=== PATIENT | male | born 1965 | race Caucasian/White ===

== ENCOUNTER 2016-11-10 17:25 | Inpatient (IN) | payer SELFPAY ==
[~2016-11-10] VITALS: Ht 165.1 cm; Wt 94.3 kg
[2016-11-10] VITALS (7 sets, daily range): BP systolic 116–158; BP diastolic 62–82; PULSE 72–99; RESP 16–18; TEMP 97.5–97.9; O2SAT 95–97
[2016-11-10] MEDS ORDERED: SODIUM CHLORID 0.9% 500 ML INJ 500 ML IV ONE (17:45)
[2016-11-10] MEDS ORDERED: SODIUM CHLORIDE 0.9% FLUSH 10 ML FLUSH IVF PRN (17:45)
[2016-11-10] MEDS ORDERED: ASPIRIN 325 MG TAB PO ONE (17:45)
[2016-11-10] MEDS ORDERED: MORPHINE SULFATE 4 MG/ML INJ IV PUSH ONE (17:45)
[2016-11-10] MEDS: NITROGLYCERIN 0.4 MG SL 25 TABS/BTL SL SCH ×3 (17:50→17:57)
--- NOTE | 2016-11-10 17:50 | PD ---
HPI Chief Complaint: Chest Pain Time Seen by Provider: 17:36 Travel History International Travel<30 days: No Contact w/Intl Traveler<30days: No Traveled to known affect area: No History of Present Illness HPI 51-year-old male arrives to the ER with chest pain. It started yesterday at rest. Location retrosternal with a sharp quality. He ate some fruits and then the pain seemed to have disappeared. Today after working in his yard for some time and the pain returned and he came to the ER. He also describes some pain in the region of the right costal margin. He's had no nausea or vomiting. He reports hot sweats but he's had no fever or cough. He smokes about half pack cigarettes per day. He drinks a few beers per night however he used to drink a pint of liquor or more every night. He has no history of hypertension hyperlipidemia or diabetes. His mother had a history of early-onset coronary artery disease. PFS Past Medical History Gout: Yes Social History Alcohol Use: Yes (5-6 beers a day) Tobacco Use: Yes (0.5 PPD) Substance Use: No Allergies-Medications (Allergen,Severity, Reaction): Coded Allergies: Penicillin (Verified Allergy, Unknown, 11/10/16) Reported Meds & Prescriptions Reported Meds & Active Scripts Active No Active Prescriptions or Reported Medications Review of Systems Except as stated in HPI: all other systems reviewed are Neg General / Constitutional: No: Fever Physical Exam Narrative GENERAL: 51-year-old male well-nourished well-developed no acute distress SKIN: Warm and dry. HEAD: Atraumatic. Normocephalic. EYES: Pupils equal and round. No scleral icterus. No injection or drainage. ENT: No nasal bleeding or discharge. Mucous membranes pink and moist. NECK: Trachea midline. No JVD. CARDIOVASCULAR: Regular rate and rhythm. RESPIRATORY: No accessory muscle use. Clear to auscultation. Breath sounds equal bilaterally. GASTROINTESTINAL: Abdomen soft, non-tender, nondistended. Hepatic and splenic margins not palpable. MUSCULOSKELETAL: Extremities without clubbing, cyanosis, or edema. No obvious deformities. NEUROLOGICAL: Awake and alert. No obvious cranial nerve deficits. Motor grossly within normal limits. Five out of 5 muscle strength in the arms and legs. Normal speech. PSYCHIATRIC: Appropriate mood and affect; insight and judgment normal. Data Data Last Documented VS Vital Signs Date Time Temp Pulse Resp B/P Pulse Ox O2 Delivery O2 Flow Rate FiO2 11/10/16 18:06 89 18 116/78 96 Nasal Cannula 3 11/10/16 17:27 97.9 Vital signs reviewed Orders Electrocardiogram (11/10/16 17:45) Ckmb (Isoenzyme) Profile (11/10/16 17:45) Complete Blood Count With Diff (11/10/16:45) Magnesium (Mg) (11/10/16 17:45) Prothrombin Time / Inr (Pt) (11/10/16 17:45) Act Partial Throm Time (Ptt) (11/10/16 17:45) Troponin I (11/10/16:45) Chest, Single Ap (11/10/16:45) Ecg Monitoring (11/10/16 17:45) Iv Access Insert/Monitor (11/10/16 17:45) Oximetry (11/10/16 17:45) Oxygen Administration (11/10/16 17:45) Aspirin (Aspirin) (11/10/16 17:45) Morphine Inj (Morphine Inj) (11/10/16 17:45) Sodium Chloride 0.9% Flush (Ns Flush) (11/10/16 17:45) Nitroglycerin Sl (Nitrostat Sl) (11/10/16 17:45) Sodium Chlorid 0.9% 500 Ml Inj (Ns 500 M (11/10/16 17:45) Comprehensive Metabolic Panel (11/10/16 17:45) Lipase (11/10/16 17:45) Drug Screen, Random Urine (11/10/16 18:03) Alcohol (Ethanol) (11/10/16 17:50) Sodium Chlor 0.9% 1000 Ml Inj (Ns 1000 M (11/10/16 19:00) Labs Laboratory Tests Test 11/10/16 17:50 White Blood Count 12.4 TH/MM3 Red Blood Count 4.16 MIL/MM3 Hemoglobin 14.8 GM/DL Hematocrit 41.4 % Mean Corpuscular Volume 99.6 FL Mean Corpuscular Hemoglobin 35.7 PG Mean Corpuscular Hemoglobin 35.9 % Concent Red Cell Distribution Width 16.6 % Platelet Count 285 TH/MM3 Mean Platelet Volume 10.8 FL Neutrophils (%) (Auto) 75.5 % Lymphocytes (%) (Auto) 13.9 % Monocytes (%) (Auto) 7.7 % Eosinophils (%) (Auto) 2.1 % Basophils (%) (Auto) 0.8 % Neutrophils # (Auto) 9.4 TH/MM3 Lymphocytes # (Auto) 1.7 TH/MM3 Monocytes # (Auto) 1.0 TH/MM3 Eosinophils # (Auto) 0.3 TH/MM3 Basophils # (Auto) 0.1 TH/MM3 CBC Comment DIFF FINAL Differential Comment Prothrombin Time 11.9 SEC Prothromb Time International 1.1 RATIO Ratio Activated Partial 28.7 SEC Thromboplast Time MDM Medical Decision Making Medical Screen Exam Complete: Yes Emergency Medical Condition: Yes Medical Record Reviewed: Yes Differential Diagnosis NSTEMI, unstable angina, coronary vasospasm, PE, PTX, aortic dissection, pericarditis, myocarditis, endocarditis, PNA, esophageal disease, aneurysm, musculoskeletal etiologies, anxiety, cocaine/sympathomimetic abuse Narrative Course EKG reveals a sinus rhythm with a rate of [address] depressions noted At 6:05 PM the patient became unresponsive for approximately 30 seconds. He became profusely diaphoretic. Pallor was observed as well. RN observed the heart rate decreased into the 30s prior to the onset of unresponsiveness. Evidently his eyes rolled in the back of his head as well. Patient responded to a sternal rub. He woke up and was somewhat postictal for 10 seconds or so. He has no history of epilepsy or seizure. He has never had morphine before. Etiology of the event is unclear however consideration is given to either seizure-like episode or potentially a bradycardic response to morphine. He also had nitroglycerin immediately beforehand. It has since been observed at urinary incontinence accompanied the unresponsive episode. This coupled with the history of alcoholism raises concern for alcohol withdrawal seizure potentially. Upon additional questioning the patient notes that he has been drinking nearly a liter of alcohol a day up until 3 days ago and then today he had one or 2 drinks. Diagnosis Primary Impression: Chest pain Qualified Code: R07.9 - Chest pain, unspecified type Admitting Information Admitting Physician Requests: Observation Scripts No Active Prescriptions or Reported Meds Josué Biswas MD Nov 10, 2016 17:50 Josué Biswas MD Nov 10, 2016 17:50
--- NOTE | 2016-11-10 18:01 | RADRPT ---
EXAM DATE/TIME: 11/10/2016 17:43 [facility] COMPARISON: No previous studies available for comparison. INDICATIONS : Center chest pain. MEDICAL HISTORY : None. SURGICAL HISTORY : None. ENCOUNTER: Initial ACUITY: 1 day PAIN SCORE: 2/10 LOCATION: Bilateral chest. FINDINGS: A single view of the chest demonstrates the lungs to be symmetrically aerated without evidence of mas s, infiltrate or effusion. The cardiomediastinal contours are unremarkable. Healed lateral left rib fractures.. CONCLUSION: No acute disease Shahriar Mabry MD on November 10, 2016 at 17:59 Board Certified Radiologist. This report was verified electronically.
[2016-11-10 18:21] LABS: AUTOMATED NEUTROPHIL # 9.4 TH/MM3 (1.8-7.7); BASOPHIL # 0.1 TH/MM3 (0-0.2); BASOPHIL % 0.8 % (0.0-2.0); EOSINOPHIL # 0.3 TH/MM3 (0-0.4); EOSINOPHIL % 2.1 % (0.0-4.0); HEMATOCRIT 41.4 % (39.0-51.0); HEMO FLAGS DIFF FINAL; LYMPH % 13.9 % (9.0-44.0); LYMPHOCYTE # 1.7 TH/MM3 (1.0-4.8); MEAN CELL VOLUME 99.6 FL (80.0-100.0); MEAN CORPUSCULAR HEMOGLOBIN 35.7 PG (27.0-34.0); MEAN CORPUSCULAR HGB CONC 35.9 % (32.0-36.0); MONO % 7.7 % (0.0-8.0); NEUT % 75.5 % (16.0-70.0); PLATELET COUNT 285 TH/MM3 (150-450); RED BLOOD COUNT 4.16 MIL/MM3 (4.50-5.90); RED CELL DISTRIBUTION WIDTH 16.6 % (11.6-17.2); WHITE BLOOD COUNT 12.4 TH/MM3 (4.0-11.0)
[2016-11-10 18:30] LABS: APTT (PATIENT) 28.7 SEC (24.3-30.1); INTERNATIONAL NORMALIZED RATIO 1.1 RATIO; PROTHROMBIN TIME - PATIENT 11.9 SEC (9.8-11.6)
[2016-11-10] MEDS ORDERED: SODIUM CHLOR 0.9% 1000 ML INJ 1,000 ML IV ONE (19:00)
[2016-11-10 20:09] LABS: ALT (GPT) 104 U/L (12-78)
[2016-11-10 20:18] LABS: ALKALINE PHOSPHATASE 140 U/L (45-117); ANION GAP 10 MEQ/L (5-15); AST (GOT) 143 U/L (15-37); BICARBONATE 28.1 MEQ/L (21.0-32.0); BLOOD UREA NITROGEN 19 MG/DL (7-18); CHLORIDE 95 MEQ/L (98-107); CREATINE KINASE 72 U/L (39-308); GLOMERULAR FILTRATION RATE 41 ML/MIN (>89); MAGNESIUM 2.1 MG/DL (1.5-2.5); POTASSIUM 3.7 MEQ/L (3.5-5.1); SODIUM (NA) 133 MEQ/L (136-145)
--- NOTE | 2016-11-10 20:35 | PD ---
Physical Exam Narrative Patient signed out to me by Dr. Biswas. Please see his documentation for complete details. Briefly, patient has been having episodes of substernal chest pain. He says the first one was yesterday and then it occurred again today while he was mowing the lawn. Patient received nitroglycerin, and then had an episode of unresponsiveness with incontinence that was believed to possibly be a seizure. Patient has history of chronic alcoholism, there is concern for withdrawal. Currently, patient is awake and alert and oriented. Heart is regular rate and rhythm, lungs are clear to auscultation. Data Data Last Documented VS Vital Signs Date Time Temp Pulse Resp B/P Pulse Ox O2 Delivery O2 Flow Rate FiO2 11/10/16 19:14 80 17 120/62 96 Nasal Cannula 2 11/10/16 17:27 97.9 Orders Electrocardiogram (11/10/16 17:45) Ckmb (Isoenzyme) Profile (11/10/16 17:45) Complete Blood Count With Diff (11/10/16 17:45) Magnesium (Mg) (11/10/16 17:45) Prothrombin Time / Inr (Pt) (11/10/16 17:45) Act Partial Throm Time (Ptt) (11/10/16 17:45) Troponin I (11/10/16 17:45) Chest, Single Ap (11/10/16 17:45) Ecg Monitoring (11/10/16 17:45) Iv Access Insert/Monitor (11/10/16 17:45) Oximetry (11/10/16 17:45) Oxygen Administration (11/10/16 17:45) Aspirin (Aspirin) (11/10/16 17:45) Morphine Inj (Morphine Inj) (11/10/16 17:45) Sodium Chloride 0.9% Flush (Ns Flush) (11/10/16 17:45) Nitroglycerin Sl (Nitrostat Sl) (11/10/16 17:45) Sodium Chlorid 0.9% 500 Ml Inj (Ns 500 M (11/10/16 17:45) Comprehensive Metabolic Panel (11/10/16 17:45) Lipase (11/10/16 17:45) Drug Screen, Random Urine (11/10/16 18:03) Alcohol (Ethanol) (11/10/16 17:50) Sodium Chlor 0.9% 1000 Ml Inj (Ns 1000 M (11/10/16 19:00) Admit Order (Ed Use Only) (11/10/16 ) Lorazepam Inj (Ativan Inj) (11/10/16 21:00) Labs Laboratory Tests Test 11/10/16 11/10/16 17:50 19:25 White Blood Count 12.4 TH/MM3 Red Blood Count 4.16 MIL/MM3 Hemoglobin 14.8 GM/DL Hematocrit 41.4 % Mean Corpuscular Volume 99.6 FL Mean Corpuscular Hemoglobin 35.7 PG Mean Corpuscular Hemoglobin 35.9 % Concent Red Cell Distribution Width 16.6 % Platelet Count 285 TH/MM3 Mean Platelet Volume 10.8 FL Neutrophils (%) (Auto) 75.5 % Lymphocytes (%) (Auto) 13.9 % Monocytes (%) (Auto) 7.7 % Eosinophils (%) (Auto) 2.1 % Basophils (%) (Auto) 0.8 % Neutrophils # (Auto) 9.4 TH/MM3 Lymphocytes # (Auto) 1.7 TH/MM3 Monocytes # (Auto) 1.0 TH/MM3 Eosinophils # (Auto) 0.3 TH/MM3 Basophils # (Auto) 0.1 TH/MM3 CBC Comment DIFF FINAL Differential Comment Prothrombin Time 11.9 SEC Prothromb Time International 1.1 RATIO Ratio Activated Partial 28.7 SEC Thromboplast Time B-Type Natriuretic Peptide 3 PG/ML Sodium Level 133 MEQ/L Potassium Level 3.7 MEQ/L Chloride Level 95 MEQ/L Carbon Dioxide Level 28.1 MEQ/L Anion Gap 10 MEQ/L Blood Urea Nitrogen 19 MG/DL Creatinine 1.76 MG/DL Estimat Glomerular Filtration 41 ML/MIN Rate Random Glucose 130 MG/DL Calcium Level 8.7 MG/DL Magnesium Level 2.1 MG/DL Total Bilirubin 1.0 MG/DL Aspartate Amino Transf 143 U/L (AST/SGOT) Alanine Aminotransferase 104 U/L (ALT/SGPT) Alkaline Phosphatase 140 U/L Total Creatine Kinase 72 U/L Troponin I LESS THAN 0.02 NG/ML Total Protein 8.4 GM/DL Albumin 3.7 GM/DL Lipase 147 U/L Ethyl Alcohol Level LESS THAN 3 MG/DL [facility] Supervised Visit with KATYA: No Narrative Course Labs show a creatinine of 1.76 as well as elevation in his AST and ALT. He is given 1 mg of Ativan to prevent withdrawal. He is admitted for rule out ACS as well as a Day and possible alcohol withdrawal. Diagnosis Primary Impression: Chest pain Qualified Code: I20.8 - Stable angina pectoris Additional Impressions: Alcohol withdrawal seizure without complication Acute kidney injury Admitting Information Admitting Physician Requests: Admit Scripts No Active Prescriptions or Reported Meds Condition: Cici Huffman MD Nov 10, 2016 20:35
[2016-11-10] MEDS ORDERED: LORazepam 2 MG/ML VIAL IV PUSH ONE (21:00)
[2016-11-10] MEDS: SODIUM CHLOR 0.9% 1000 ML INJ 1,000 ML IV SCH (21:25)
[2016-11-10] MEDS ORDERED: FLUMAZENIL 0.5 MG/5 ML VIAL IV PUSH PRN (21:30)
[2016-11-10] MEDS ORDERED: SODIUM CHLORIDE 0.9% FLUSH 10 ML FLUSH IV FLUSH PRN (21:30)
[2016-11-10] MEDS ORDERED: ACETAMINOPHEN 325 MG TAB PO PRN (21:30)
[2016-11-10] MEDS ORDERED: LORazepam 2 MG/ML VIAL IV PUSH PRN ×4 (21:30)
[2016-11-10] MEDS ORDERED: NALOXONE HCL 0.4 MG/ML AMP IV PRN (21:30)
[2016-11-10] MEDS ORDERED: LORazepam 2 MG/ML VIAL IV PRN (21:30)
[2016-11-10] MEDS ORDERED: LORazepam 1 MG TAB PO PRN (21:30)
[2016-11-10] MEDS ORDERED: LORazepam 2 MG TAB PO PRN (21:30)
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
[2016-11-10] MEDS: SODIUM CHLORIDE 0.9% FLUSH 10 ML FLUSH IV FLUSH SCH (21:41)
[2016-11-10] MEDS: METOPROLOL SUCCINATE 25 MG EXTENDED RELEASE TAB PO SCH (23:58)
[2016-11-10] MEDS: HEPARIN SODIUM - SQ 10,000 UNITS/ML VIAL SQ SCH (23:59)
[2016-11-11] VITALS (10 sets, daily range): BP systolic 112–133; BP diastolic 57–77; PULSE 58–73; RESP 16–20; TEMP 97.2–98.1; O2SAT 96–100
[2016-11-11 01:59] LABS: AUTOMATED NEUTROPHIL # 5.2 TH/MM3 (1.8-7.7); BASOPHIL # 0.1 TH/MM3 (0-0.2); BASOPHIL % 0.7 % (0.0-2.0); EOSINOPHIL # 0.2 TH/MM3 (0-0.4); EOSINOPHIL % 2.4 % (0.0-4.0); HEMATOCRIT 36.6 % (39.0-51.0); HEMO FLAGS DIFF FINAL; LYMPH % 21.7 % (9.0-44.0); LYMPHOCYTE # 1.7 TH/MM3 (1.0-4.8); MEAN CELL VOLUME 104.1 FL (80.0-100.0); MEAN CORPUSCULAR HEMOGLOBIN 35.3 PG (27.0-34.0); MEAN CORPUSCULAR HGB CONC 33.9 % (32.0-36.0); NEUT % 66.2 % (16.0-70.0); PLATELET COUNT 145 TH/MM3 (150-450); RED BLOOD COUNT 3.52 MIL/MM3 (4.50-5.90); RED CELL DISTRIBUTION WIDTH 14.9 % (11.6-17.2); WHITE BLOOD COUNT 7.8 TH/MM3 (4.0-11.0)
[2016-11-11 02:10] LABS: ALT (GPT) 91 U/L (12-78); ANION GAP 8 MEQ/L (5-15); AST (GOT) 104 U/L (15-37); BICARBONATE 29.7 MEQ/L (21.0-32.0); BLOOD UREA NITROGEN 20 MG/DL (7-18); CHLORIDE 100 MEQ/L (98-107); GLOMERULAR FILTRATION RATE 56 ML/MIN (>89); POTASSIUM 3.9 MEQ/L (3.5-5.1); SODIUM (NA) 138 MEQ/L (136-145)
[2016-11-11 02:14] LABS: ALKALINE PHOSPHATASE 118 U/L (45-117); HDL CHOLESTEROL 7.7 MG/DL (40.0-60.0); LDL CHOLESTEROL 158 MG/DL (0-99); TOTAL BILIRUBIN ADULT 0.8 MG/DL (0.2-1.0)
[2016-11-11] MEDS: SODIUM CHLOR 0.9% 1000 ML INJ 1,000 ML IV SCH ×3 (05:08→20:28)
[2016-11-11] MEDS: SODIUM CHLORIDE 0.9% FLUSH 10 ML FLUSH IV FLUSH SCH ×2 (09:00→20:28)
[2016-11-11] MEDS: ASPIRIN 81 MG CHEW TAB CHEW SCH (09:05)
[2016-11-11] MEDS: THIAMINE HCL 100 MG TAB PO SCH (09:05)
[2016-11-11] MEDS: MULTIVITAMINS/MINERALS THERAPEUTIC TAB PO SCH (09:05)
[2016-11-11] MEDS: FOLIC ACID 1 MG TAB PO SCH (09:05)
[2016-11-11] MEDS: METOPROLOL SUCCINATE 25 MG EXTENDED RELEASE TAB PO SCH (09:05)
[2016-11-11] MEDS: HEPARIN SODIUM - SQ 10,000 UNITS/ML VIAL SQ SCH ×2 (09:10→21:07)
--- NOTE | 2016-11-11 11:00 | HHI.FPPN ---
Subjective Remarks Medicine attending note: 51-year-old gentleman admitted with chest pain, history of alcohol cessation, elevated creatinine, elevated LFTs who relates that over the last several days he had pain that radiated from his left back around to his anterior chest. Patient knew that several years ago he had 4 fractured ribs and since has had some pain in the area. This did seem to be different. Otherwise nonradiating, no nausea vomiting or diaphoresis. Patient admittedly does have a history of increased alcohol intake. Does not know anything about diminished kidney function. Does not have medical insurance, still making payments on a previous admission to [facility] and private physicians for an admission with right sided weakness , no etiology definitely determined. On interview the patient is currently asymptomatic with regards chest pain. His history of alcohol withdrawal has been notable for tremors, no history of DTs or "rum fits". See resident history and physical for complete discussion of past medical history, family history, social history and review of systems. Objective Vitals Vital signs noted: Not tachycardic, blood pressure stable, afebrile. General appearance: Middle-aged gentleman pleasant conversation, normal affect, excellent eye contact. HEENT: Grossly nonlocalizing. Lungs: Diminished clear breath sounds on auscultation. Cardiac: S1-S2, soft systolic murmur at the left sternal border nonradiating. No irregularity of rhythm. No S3. Abdomen: Slightly protuberant, active bowel suggestive of right upper quadrant liver enlargement, difficult to confirm with abdomen habitus. Extremities: Feet are warm and dry, intact pedal pulses, no ankle edema. Neurologic: No tremor, patient is alert and oriented and pleasant conversation. Vital Signs Date Time Temp Pulse Resp B/P Pulse Ox O2 Delivery O2 Flow Rate FiO2 11/11/16 08:01 97.4 60 18 117/62 99 11/11/16 04:00 97.2 60 19 133/77 100 11/11/16 00:00 98.1 67 16 117/63 98 11/10/16 22:50 75 11/10/16 21:55 75 158/74 97 2 11/10/16 21:22 97.5 72 16 134/63 97 11/10/16 19:14 80 17 120/62 96 Nasal Cannula 2 11/10/16 18:06 89 18 116/78 96 Nasal Cannula 3 11/10/16 17:48 18 95 Room Air 11/10/16 17:48 96 Room Air 11/10/16 17:37 94 18 94 Room Air 11/10/16 17:27 97.9 99 18 138/82 96 Room Air I/O 11/10/16 11/10/16 11/10/16 11/11/16 11/11/16 11/11/16 07:00 15:00 23:00 07:00 15:00 23:00 Intake Total 480 ml Output Total 400 ml Balance 80 ml Intake Oral 480 ml Output Urine Total 400 ml # Bowel Movements 0 Result Diagram: 11/11/16 0120 11/11/16 0120 A/P Assessment and Plan 51 YO male w/PMHx EtOH dependence, tobacco use disorder, and gout who presents with CP and SOB for ACS/NSTEMI r/o and likely alcohol withdrawal episode with potential seizure-like activity, elevated LFTs, and MITUL with dehydration. Tropo 0.02, BNP 3 and EKG with sinus rhythm and moderate ST depression in anterior and lateral leads w/o previous baseline study. DDx: Demand ischemia vs unstable angina VS NSTEMI, perhaps 2/2 EtOH withdrawal. 11/11/16 clinical assessment 51-year-old gentleman with a history of the disease of alcoholism and substance abuse disorder admitted with chest pain. EKGs revealed nonspecific ST-T wave changes, troponin have been negative , of concern however is that the patient does have an exertional component to chest pain and is recommended that he have a nuclear stress test prior to discharge. Chest pain is probably musculoskeletal related to the chest wall and previous rib fractures. Acute kidney injury suspected, hydration ongoing, LFTs related to alcohol, please refer to resident history and physical for complete discussion of other aspects of medical history. Clinical plan: Additional 24 hours to hydrate, monitor renal function, monitor for symptoms of withdrawal of alcohol, CIWA protocol. Patient seen and examined. Case reviewed and discussed with resident team. Agree with plan of care as discussed with me and documented in the resident note. Problem List: (1) Chest pain Status: Acute Plan: - Describes CP as being provoked upon exertion, but also possible w/o exertion - Trending troponins 0.02 - CXR neg, WBC 12.4 - EKG with sinus rhythm and moderate ST depression in anterior (greatest), lateral and inferior (least) leads - Bradycardic episode with potential seizure-like activity following admin of morphine and nitroglycerin - Holding nitroglycerin and morphine for now - BNP pending - ECHO tomorrow - Supplemental O2 PRN - ASA 81 mg / day - 1L NS IVF @ 130 ml/hr to volume replete - Heparin 5000 units q12h - Metoprolol 25 mg day - Tylenol 650 mg q4h for pain - Continuous telemetry (2) Dyspnea on exertion Status: Acute Plan: - SOB 2/2 exertional and likely dehydration induced cardiac demand ischemia - Supplemental O2 PRN--now on 2L NC - Continuous pulse ox (3) EtOH dependence Status: Acute Plan: - Describes 3-4 days of having cut back on significant EtOH intake (1L vodka/day to 3-4 beers/day) - LOC for 10 seconds with possible post-ictal period potential EtOH withdrawal seizure - Place on CIWA protocol bundle w/Ativan PRN (4) Alcohol withdrawal seizure without complication Status: Acute Plan: - As per above/CIWA (5) Acute kidney injury Status: Acute Plan: - Cr 1.76 at presentation - IVF as per above - CMP tomorrow - Strict I/Os (6) Elevated LFTs Status: Acute Plan: - CMP tomorrow as above - Likely 2/2 EtOH abuse/dependence (7) Tobacco use disorder Status: Acute Plan: - 1/2 ppd smoker for 15 years - Nicotine patch PRN (8) FEN/GI/PPx Status: Acute Plan: - Heparin as above - Normal diet as tolerated - Thiamine, folic acid and M/V to replete Problem Qualifiers (1) Chest pain: Qualified Code: I20.8 - Stable angina pectoris (2) EtOH dependence: Qualified Code: F10.230 - Alcohol dependence with uncomplicated withdrawal Christopher Mejia MD Nov 11, 2016 11:00
[2016-11-11] MEDS ORDERED: REGADENOSON INJ 0.4 MG/5 ML SYR ONE (14:04)
--- NOTE | 2016-11-11 15:31 | RADRPT ---
EXAM DATE/TIME: 11/11/2016 09:34 [place] COMPARISON: No previous studies available for comparison. INDICATIONS : Mid chest pain for one day. Abnormal EKG. DOSE: 26.5 mCi Tc99m Myoview at stress. 8.7 mCi Tc99m Myoview at rest. 0.4 mg Lexiscan STRESS SYMPTOMS: Warm. EJECTION FRACTION: 52% MEDICAL HISTORY : Stroke. EtOH abuse. SURGICAL HISTORY : Tonsillectomy. ENCOUNTER: Initial ACUITY: 1 day PAIN SCALE: 10/10 LOCATION: Midsternal chest TECHNIQUE: The patient underwent pharmacologic stress with infusion of prescribed dose. Continuous ECG tracing was monitored during stress. Gated SPECT imaging was performed after stress and conventional SPECT i maging was performed at rest. The examination was performed on a SPECT/CT scanner, both attenuation and non-corrected datasets were reviewed. FINDINGS: DISTRIBUTION: The maximum perfused segment at stress is in the posterobasal wall. PERFUSION STUDY: The pattern of perfusion at stress is within normal limits. GATED STUDY: There is intact wall motion and thickening without hypokinetic or dyskinetic segments. CONCLUSION: Normal examination. RISK CATEGORY: Low (<1% Annual Mortality Rate) Shahriar Mabry MD on November 11, 2016 at 15:29 Board Certified Radiologist. This report was verified electronically.
[2016-11-11 16:31] LABS: HEMOGLOBIN A1a 0.9 %; HEMOGLOBIN A1b 0.6 %; HEMOGLOBIN Ao 86.7 %; HEMOGLOBIN F 0.8 %; HEMOGLOBIN LA1C 1.4 %; HEMOGLOBIN P3 3.2 %
--- NOTE | 2016-11-11 16:32 | EKG ---
Date Performed: 11/10/2016 Time Performed: 17:39:42 PTAGE: 51 years EKG: SINUS RHYTH Minor nonspecific ST wave changes. Otherwise within normal limits. MODERATE ST DEPRESSION ABNORMAL ECG NO PREVIOUS TRACING DOCTOR: Vinnie Morgan Interpretating Date/Time 11/11/2016 16:32:20
--- NOTE | 2016-11-11 16:34 | EKG ---
Date Performed: 11/11/2016 Time Performed: 07:05:21 PTAGE: 51 years EKG: Sinus rhythm NONSPECIFIC T-WAVE ABNORMALITY When compared to previous tracing, there is sligt improvement in The ST-T wave change. NORMAL ECG PREVIOUS TRACING : 11/10/2016 17.39 DOCTOR: Vinnie Morgan Interpretating Date/Time 11/11/2016 16:34:38
[2016-11-12] MEDS: SODIUM CHLOR 0.9% 1000 ML INJ 1,000 ML IV SCH (04:13)
[2016-11-12 04:17] VITALS: BP 151/78; PULSE 67; RESP 18; TEMP 97.4; O2SAT 97
[2016-11-12] MEDS ORDERED: MORPHINE SULFATE 4 MG/ML INJ IV PUSH PRN (05:45)
[2016-11-12] MEDS ORDERED: predniSONE 20 MG TAB PO SCH (06:00)
[2016-11-12] MEDS ORDERED: ACETAMINOPHEN/HYDROcodone 325 MG/10 MG TAB PO ONE (06:15)
[2016-11-12 07:05] LABS: AUTOMATED NEUTROPHIL # 4.6 TH/MM3 (1.8-7.7); BASOPHIL % 0.6 % (0.0-2.0); EOSINOPHIL # 0.3 TH/MM3 (0-0.4); EOSINOPHIL % 4.4 % (0.0-4.0); HEMATOCRIT 34.9 % (39.0-51.0); HEMO FLAGS DIFF FINAL; LYMPH % 20.4 % (9.0-44.0); LYMPHOCYTE # 1.4 TH/MM3 (1.0-4.8); MEAN CELL VOLUME 104.5 FL (80.0-100.0); MEAN CORPUSCULAR HEMOGLOBIN 35.7 PG (27.0-34.0); MEAN CORPUSCULAR HGB CONC 34.2 % (32.0-36.0); MONO % 7.6 % (0.0-8.0); PLATELET COUNT 126 TH/MM3 (150-450); RED BLOOD COUNT 3.34 MIL/MM3 (4.50-5.90); RED CELL DISTRIBUTION WIDTH 14.8 % (11.6-17.2); WHITE BLOOD COUNT 6.9 TH/MM3 (4.0-11.0)
[2016-11-12 07:26] LABS: BICARBONATE 25.7 MEQ/L (21.0-32.0)
[2016-11-12 08:00] VITALS: BP 142/67; PULSE 62; PULSE 85; RESP 18; TEMP 97.4; O2SAT 97
[2016-11-12] MEDS: ASPIRIN 81 MG CHEW TAB CHEW SCH (08:10)
[2016-11-12] MEDS: SODIUM CHLORIDE 0.9% FLUSH 10 ML FLUSH IV FLUSH SCH (08:10)
[2016-11-12] MEDS: FOLIC ACID 1 MG TAB PO SCH (08:10)
[2016-11-12] MEDS: THIAMINE HCL 100 MG TAB PO SCH (08:10)
[2016-11-12] MEDS: MULTIVITAMINS/MINERALS THERAPEUTIC TAB PO SCH (08:10)
[2016-11-12] MEDS: METOPROLOL SUCCINATE 25 MG EXTENDED RELEASE TAB PO SCH (08:10)
--- NOTE | 2016-11-12 09:20 | HHI.FPPN ---
Subjective Remarks Overnight patient had complaints of pain in his right foot that had felt like pain from a previous flare of gout. Patient was given PO prednisone and norco for pain and states his pain is minimal this morning. He does endorse pain in the right foot when ambulating and with palpation. Patient remains afebrile, vitals stable. Patient reassured of his normal nuclear stress test. He specifically denies fevers, chills, CP, SOB, abdominal pain, any lightheadedness, syncope, or seizure-like activity. Objective Vitals Vital Signs Date Time Temp Pulse Resp B/P Pulse Ox O2 Delivery O2 Flow Rate FiO2 11/12/16 08:00 97.4 62 18 142/67 97 11/12/16 04:17 97.4 67 18 151/78 97 11/11/16 23:49 97.7 60 18 117/68 97 11/11/16 20:00 73 11/11/16 19:49 97.4 71 18 129/68 97 11/11/16 17:53 96 21 11/11/16 16:05 97.8 65 20 115/59 96 11/11/16 12:15 97.4 58 18 112/57 96 I/O 11/11/16 11/11/16 11/11/16 11/12/16 11/12/16 11/12/16 07:00 15:00 23:00 07:00 15:00 23:00 Intake Total 480 ml 2861 ml 1750 ml Output Total 400 ml 100 ml 100 ml 325 ml Balance 80 ml -100 ml 2761 ml 1425 ml Intake Oral 480 ml 240 ml 720 ml IV Total 2621 ml 1030 ml Output Urine Total 400 ml 100 ml 100 ml 325 ml # Voids 3 # Bowel Movements 0 0 1 0 Result Diagram: 11/12/1662011/12/1621 Objective Remarks GENERAL: NAD SKIN: Raised, well-circumscribed, symmetrical macules on the ventral aspect of bilateral wrists. Skin warm and dry. Small raised epidermal inclusion cyst on upper right back. HEAD: Atraumatic. Normocephalic. EYES: EOMI. No scleral icterus. No injection or drainage. ENT: No nasal drainage. MMM. NECK: Trachea midline. No lymphadenopathy. Supple, nontender, no meningeal signs. CARDIOVASCULAR: Regular rate and rhythm without gallops or rubs. 2/6 systolic flow murmur appreciated at right sternal border. RESPIRATORY: Clear to auscultation. Breath sounds equal bilaterally. No wheezes , rales, or rhonchi. No increased WOB. GASTROINTESTINAL: Abdomen soft, non-tender, protuberant. Seems to be some degree of hepatomegaly. No guarding or rebound. MUSCULOSKELETAL: Extremities without clubbing, cyanosis, or edema. No joint tenderness, effusion, or edema noted. No calf tenderness. Pain with palpation of lateral aspect of right foot. No visible erythema or edema in bilateral foot or toes. Great toes are nontender bilaterally. NEUROLOGICAL: Awake and alert. Cranial nerves grossly intact. Motor and sensory grossly within normal limits. A/P Assessment and Plan 51 year old male with PMH of EtOH dependence and gout presented with CP and SOB for ACS r/o and likely alcohol withdrawal episode with potential seizure-like activity and MITUL. Discharge Planning Stable for discharge home today Case management consulted, assisting with patient to obtain a blue card for outpatient follow up and obtaining medications upon discharge Problem List: (1) Chest pain Status: Acute Plan: - Troponins < 0.02 x3 - CXR neg, WBC 12.4 - EKG with sinus rhythm and moderate nonspecific ST depression in anterior leads - Repeat EKG with improvement of ST depressions - Bradycardic episode with potential seizure-like activity following admin of morphine and nitroglycerin - Holding nitroglycerin and morphine - ASA 81 mg daily - Heparin 5000 units sq q12h - Metoprolol 25 mg po daily - Continuous telemetry - Nuclear stress test with normal examination, patient in low-risk category <1% annual mortality rate (2) Dyspnea on exertion Status: Acute Plan: - SOB 2/2 exertional and likely dehydration induced cardiac demand ischemia - Supplemental O2 prn - Continuous pulse ox (3) EtOH dependence Status: Acute Plan: - Describes 3-4 days of having cut back on significant EtOH intake (1L vodka/day to 3-4 beers/day) - LOC for 10 seconds with possible post-ictal period potential EtOH withdrawal seizure - CIWA protocol - MV, thiamine, folic acid (4) Alcohol withdrawal seizure without complication Status: Acute Plan: - CIWA protocol as above - Ativan 2 mg IV prn seizure (5) Acute kidney injury Status: Resolved Plan: - Cr 1.76 on admission, baseline unknown - Cr now normalized 0.72 - Continue IVF as above - Strict I/Os (6) Elevated LFTs Status: Acute Plan: - Likely 2/2 EtOH abuse/dependence - Continue to monitor (7) FEN/GI/PPx Status: Acute Plan: - Heparin as above - Heart healthy diet - NS at 130 cc/hr - Electrolytes WNL Problem Qualifiers (1) Chest pain: Qualified Code: I20.8 - Stable angina pectoris (2) EtOH dependence: Qualified Code: F10.230 - Alcohol dependence with uncomplicated withdrawal Rush Feng MD R2 Nov 12, 2016 09:20
[2016-11-12] MEDS ORDERED: MEDR4PAK PO (10:02)
[2016-11-12] MEDS ORDERED: PRAV20TA2 PO (10:02)
[2016-11-12] MEDS ORDERED: METO25TA3 PO (10:02)
[2016-11-12] MEDS ORDERED: ASPI81TA11 PO (10:02)
--- NOTE | 2016-11-12 10:03 | HHI.DCPOC ---
Discharge Care Plan Diagnosis: (1) Acute kidney injury (2) Chest pain (3) Alcohol withdrawal seizure without complication (4) EtOH dependence Goals to Promote Your Health * To prevent worsening of your condition and complications, follow up with a primary care physician here at [facility] within one week after leaving the hospital. Directions to Meet Your Goals Take your medications as prescribed Follow your dietary instruction Follow activity as directed Keep your appointments as scheduled Take your immunizations and boosters as scheduled If your symptoms worsen call your PCP, if no PCP go to Urgent Care Center or Emergency Room Smoking is Dangerous to Your Health. Avoid second hand smoke Call the 24-hour hour crisis hotline for domestic abuse at Rush Feng MD R2 Nov 12, 2016 10:03
--- NOTE | 2016-11-12 10:05 | HHI.DS ---
Discharge Summary Admission Date Nov 10, 2016 at 20:50 Discharge Date: Nov 12, 2016 Admitting Diagnosis Chest Pain, alcohol withdrawal (1) Chest pain Diagnosis: Principal Plan: - Troponins < 0.02 x3 - CXR neg, WBC 12.4 - EKG with sinus rhythm and moderate nonspecific ST depression in anterior leads - Repeat EKG with improvement of ST depressions - Bradycardic episode with potential seizure-like activity following admin of morphine and nitroglycerin - Holding nitroglycerin and morphine - ASA 81 mg daily - Heparin 5000 units sq q12h - Metoprolol 25 mg po daily - Continuous telemetry - Nuclear stress test with normal examination, patient in low-risk category <1% annual mortality rate (2) Dyspnea on exertion Diagnosis: Principal Plan: - SOB 2/2 exertional and likely dehydration induced cardiac demand ischemia - Supplemental O2 prn - Continuous pulse ox (3) EtOH dependence Diagnosis: Principal Plan: - Describes 3-4 days of having cut back on significant EtOH intake (1L vodka/day to 3-4 beers/day) - LOC for 10 seconds with possible post-ictal period potential EtOH withdrawal seizure - CIWA protocol - MV, thiamine, folic acid (4) Alcohol withdrawal seizure without complication Diagnosis: Principal Plan: - CIWA protocol as above - Ativan 2 mg IV prn seizure (5) Acute kidney injury Diagnosis: Principal Plan: - Cr 1.76 on admission, baseline unknown - Cr now normalized 0.72 - Continue IVF as above - Strict I/Os (6) Elevated LFTs Diagnosis: Secondary Plan: - Likely 2/2 EtOH abuse/dependence - Continue to monitor (7) FEN/GI/PPx Diagnosis: Secondary Plan: - Heparin as above - Heart healthy diet - NS at 130 cc/hr - Electrolytes WNL Consultants None Brief History 51 YO male w/PMHx of EtOH dependence, tobacco use, gout and possible CVA-like episode a year ago presents with chest pain and shortness of breath, then a bradycardic episode after admin of morphine and nitroglycerin that resulted in a transient LOC for 30 secs in the ED with a short post-ictal period and diaphoresis w/urinary incontinence. Pain began as back cramping after being outside in the sun for 5 hours, so he stopped work early, went home, took a cold shower, ate dinner and had 2-3 beers. Pt couldn't finish the 3rd beer as pain became substernal, sharp, stabbing in quality, 10/10 on pain scale, across the chest below the nipples, radiating both to the right and left lower chest and around to his left back. Pt works as a metal building assembler outside but notes he's quickly becoming incapable of a full day's work outside. States he used to drink 1 liter of vodka per night for several years and now realizes he needs to cut back so he can work a full day. 3-4 days ago he cut back to 3-4 beers per day, but then 2 days ago had to take a day off because he could only tolerate 5- 6 hours outside. Today he stopped early due to the sxs described above. Pt denies N/V, dark, tarry stools, bright red blood per rectum, previous hx of seizures, or abdominal pain, but has had 2 years of watery stools 5-6x daily. Pt endorses night sweats and recent wt gain of 4-5 lbs, and requires 2 pillows to prop his head at night. In ED, pt CXR neg, WBC 12.4, EtOH <3, LFTs elevated, Cr 1.76, minor electrolyte abnormalities, and Troponin 0.02. 1.5L NS IVF, ASA 325. When pt given morphine and nitroglycerin, became bradycardic, eyes rolled back and becam unresponsive for ~10 secs, afterward became post-ictal for another 10 secs. Pt does not recall what happened. Admitted for ACS r/o and likely EtOH withdrawal. CBC/BMP: 11/12/16 0621 11/12/16 0621 Significant Findings Laboratory Tests Test 11/10/16 11/10/16 11/11/16 11/11/16 17:50 19:25 01:20 13:06 White Blood Count 12.4 TH/MM3 (4.0-11.0) Red Blood Count 4.16 MIL/MM3 3.52 MIL/MM3 (4.50-5.90) (4.50-5.90) Mean Corpuscular Hemoglobin 35.7 PG 35.3 PG (27.0-34.0) (27.0-34.0) Neutrophils (%) (Auto) 75.5 % (16.0-70.0) Neutrophils # (Auto) 9.4 TH/MM3 (1.8-7.7) Monocytes # (Auto) 1.0 TH/MM3 (0-0.9) Prothrombin Time 11.9 SEC (9.8-11.6) Sodium Level 133 MEQ/L (136-145) Chloride Level 95 MEQ/L (98-107) Blood Urea Nitrogen 19 MG/DL (7-18) 20 MG/DL (7-18) Creatinine 1.76 MG/DL 1.34 MG/DL (0.60-1.30) (0.60-1.30) Estimat Glomerular Filtration 41 ML/MIN (>89) 56 ML/MIN (>89) Rate Random Glucose 130 MG/DL (74-106) Aspartate Amino Transf 143 U/L (15-37) 104 U/L (15-37) (AST/SGOT) Alanine Aminotransferase 104 U/L (12-78) 91 U/L (12-78) (ALT/SGPT) Alkaline Phosphatase 140 U/L 118 U/L (45-117) (45-117) Troponin I LESS THAN 0.02 LESS THAN 0.02 LESS THAN 0.02 NG/ML NG/ML NG/ML (0.02-0.05) (0.02-0.05) (0.02-0.05) Total Protein 8.4 GM/DL (6.4-8.2) Hemoglobin 12.4 GM/DL (13.0-17.0) Hematocrit 36.6 % (39.0-51.0) Mean Corpuscular Volume 104.1 FL (80.0-100.0) Platelet Count 145 TH/MM3 (150-450) Monocytes (%) (Auto) 9.0 % (0.0-8.0) Calcium Level 7.9 MG/DL (8.5-10.1) Albumin 3.3 GM/DL (3.4-5.0) Triglycerides Level 290 MG/DL (42-150) Cholesterol Level 224 MG/DL (120-200) LDL Cholesterol 158 MG/DL (0-99) HDL Cholesterol 7.7 MG/DL (40.0-60.0) Test 11/12/16 06:21 Red Blood Count 3.34 MIL/MM3 (4.50-5.90) Hemoglobin 11.9 GM/DL (13.0-17.0) Hematocrit 34.9 % (39.0-51.0) Mean Corpuscular Volume 104.5 FL (80.0-100.0) Mean Corpuscular Hemoglobin 35.7 PG (27.0-34.0) Platelet Count 126 TH/MM3 (150-450) Eosinophils (%) (Auto) 4.4 % (0.0-4.0) Blood Urea Nitrogen 19 MG/DL (7-18) Calcium Level 7.9 MG/DL (8.5-10.1) Imaging CXR 11/10: No acute disease Myocardial perfusion scan NM 11/11: Normal examination PE at Discharge GENERAL: NAD SKIN: Raised, well-circumscribed, symmetrical macules on the ventral aspect of bilateral wrists. Skin warm and dry. Small raised epidermal inclusion cyst on upper right back. HEAD: Atraumatic. Normocephalic. EYES: EOMI. No scleral icterus. No injection or drainage. ENT: No nasal drainage. MMM. NECK: Trachea midline. No lymphadenopathy. Supple, nontender, no meningeal signs. CARDIOVASCULAR: Regular rate and rhythm without gallops or rubs. 2/6 systolic flow murmur appreciated at right sternal border. RESPIRATORY: Clear to auscultation. Breath sounds equal bilaterally. No wheezes , rales, or rhonchi. No increased WOB. GASTROINTESTINAL: Abdomen soft, non-tender, protuberant. Seems to be some degree of hepatomegaly. No guarding or rebound. MUSCULOSKELETAL: Extremities without clubbing, cyanosis, or edema. No joint tenderness, effusion, or edema noted. No calf tenderness. Pain with palpation of lateral aspect of right foot. No visible erythema or edema in bilateral foot or toes. Great toes are nontender bilaterally. NEUROLOGICAL: Awake and alert. Cranial nerves grossly intact. Motor and sensory grossly within normal limits. Hospital Course EKG and troponins were trended following admission due to concern for ACS. ACS workup negative. Patient was started on metoprolol 25 mg daily and continue with baby aspirin. Patient was monitored for further seizure-like activity which did not occur. He was placed on CIWA protocol due to his history of etoh abuse. Patient did not display any signs of withdrawal while hospitalized. Patient was given IVF hydration and renal function normalized prior to discharge. Patient had a nuclear stress test done on 11/11 which was found to be normal. Patient provided assistance with outpatient follow-up by case management and can obtain a blue card to follow up with the community clinic at [place]. Patient reported pain similar to acute flare of gout he had in the past and was started on prednisone. Patient instructed to complete a Medrol dosepack after discharge and will continue with metoprolol, statin, and aspirin on discharge. Pt Condition on Discharge: Stable Discharge Disposition: Discharge Home Discharge Instructions DIET: Follow Instructions for: Heart Healthy Diet Activities you can perform: Regular-No Restrictions Follow up Referrals: PCP Follow-up - 1 Week New Medications: Aspirin DR (Aspirin EC) 81 Mg Tabdr 81 MG PO DAILY #30 Ref 0 TAB Methylprednisolone Dosepak (Medrol Dosepak) 4 Mg Dspk 4 MG PO DIRECTED Per Pharmacist direction #1 Ref 0 DSPK Metoprolol Tartrate (Metoprolol Tartrate) 25 Mg Tab 25 MG PO BID #60 Ref 0 TAB Pravastatin (Pravastatin) 20 Mg Tab 20 MG PO DAILY Cholesterol Management #30 Ref 0 TAB Rush Feng MD R2 Nov 12, 2016 10:04
[2016-11-12 12:00] VITALS: BP 150/72; PULSE 75; RESP 18; TEMP 97.3; O2SAT 98
== END 2016-11-12 14:11 | disposition home or self-care (01) | DRG 641 ==
LOC: NEPE 17:25 → NEDA 20:50 → N04B 22:08
PROVIDERS: ADMIT Family Medicine; ATTEND Family Medicine
DX: E86.0 Dehydration (principal); N17.9 Acute kidney failure, unspecified; R56.9 Unspecified convulsions; R07.89 Other chest pain; R00.1 Bradycardia, unspecified; M10.9 Gout, unspecified; F10.20 Alcohol dependence, uncomplicated; F17.210 Nicotine dependence, cigarettes, uncomplicated; R79.89 Other specified abnormal findings of blood chemistry
CPT/HCPCS: 71010; 78452; 80048; 80053; 80061; 80307; 82550; 82607; 82746; 82948; 83036; 83690; 83735; 83880; 84484; 85025; 85610; 85730; 93005; 93017; 96361; 96374; A9502; J1644; J2060; J2270; J2785; J7030; J7040; J7512

== ENCOUNTER 2016-11-21 15:17 | Emergency (ER) | payer OTHER ==
[~2016-11-21] VITALS: Ht 165.1 cm; Wt 88.0 kg
[~2016-11-21 15:17] MED LIST: ASPI81TA11 PO; MEDR4PAK PO; METO25TA3 PO; PRAV20TA2 PO
[2016-11-21 15:19] VITALS: BP 140/75; PULSE 70; RESP 18; TEMP 98.4; O2SAT 98
--- NOTE | 2016-11-21 16:43 | PD ---
Physical Exam Date Seen by Provider: Nov 21, 2016 Time Seen by Provider: 16:40 Narrative 51 y/o here with Right Flank pain since last night. No Hx. Injury or previous kidney stones. + nausea. No vomitting. No Dysuria, but some trouble starting stream. Labs and CT ordered. Vital Signs reviewed. Patient is Stable and awaiting Bed Placement. Data Data Last Documented VS Vital Signs Date Time Temp Pulse Resp B/P (MAP) Pulse Ox O2 Delivery O2 Flow Rate FiO2 11/21/16 15:19 98.4 70 18 140/75 (96) 98 Room Air [facility] Medical Record Reviewed: Yes Supervised Visit with KATYA: Yes Condition: Stable Cesar Machado Nov 21, 2016 16:43
[2016-11-21] MEDS ORDERED: SODIUM CHLORIDE 0.9% FLUSH 10 ML FLUSH IV FLUSH PRN (16:45)
[2016-11-21] MEDS ORDERED: IBUPROFEN 800 MG TAB PO ONE (16:45)
[2016-11-21 17:17] LABS: BLOOD, URINE NEG (NEG); GLUCOSE,URINE NEG (NEG); KETONE, URINE NEG (NEG); NITRITE,URINE NEG (NEG); URINE COLOR YELLOW (YELLW/STRAW)
[2016-11-21 17:22] LABS: AUTOMATED NEUTROPHIL # 13.8 TH/MM3 (1.8-7.7); BASOPHIL # 0.1 TH/MM3 (0-0.2); BASOPHIL % 0.4 % (0.0-2.0); EOSINOPHIL # 0.4 TH/MM3 (0-0.4); HEMATOCRIT 41.2 % (39.0-51.0); HEMO FLAGS DIFF FINAL; LYMPH % 14.3 % (9.0-44.0); LYMPHOCYTE # 2.6 TH/MM3 (1.0-4.8); MEAN CORPUSCULAR HEMOGLOBIN 34.9 PG (27.0-34.0); MEAN CORPUSCULAR HGB CONC 33.9 % (32.0-36.0); NEUT % 76.3 % (16.0-70.0); PLATELET COUNT 256 TH/MM3 (150-450); WHITE BLOOD COUNT 18.1 TH/MM3 (4.0-11.0)
[2016-11-21 17:23] LABS: COMMENT (UR) CULT NOT INDICATED; CULTURE IF INDICATED CULT NOT INDICATED
--- NOTE | 2016-11-21 17:46 | RADRPT ---
EXAM DATE/TIME: 11/21/2016 17:08 [place] COMPARISON: No previous studies available for comparison. INDICATIONS : Patient complains of right side flank pain. ORAL CONTRAST: No oral contrast ingested. RADIATION DOSE: 17.61 CTDIvol (mGy) MEDICAL HISTORY : Hypertension. SURGICAL HISTORY : None. ENCOUNTER: Initial ACUITY: 1 day PAIN SCALE: 10/10 LOCATION: Right flank TECHNIQUE: Volumetric scanning of the abdomen and pelvis was performed. Using automated exposure control and ad justment of the mA and/or kV according to patient size, radiation dose was kept as low as reasonably achievable to obtain optimal diagnostic quality images. DICOM format image data is available electro nically for review and comparison. FINDINGS: LOWER LUNGS: 3 pulmonary nodules observed. The largest within the lateral basilar segment of the left lower lobe m easuring 5 mm. There is a 3 mm nodule within the lateral segment of the right middle lobe and 3 mm no dule within the superior segment of the right lower lobe. No dominant mass. No infiltrate. LIVER: The liver is diffusely low in attenuation. No mass or ductal dilatation. There is more normal attenua tion seen within the lateral right lobe. No soft tissue mass. Gallbladder is unremarkable. SPLEEN: Normal size without lesion. PANCREAS: Within normal limits. KIDNEYS: Normal in size and shape. There is no mass, stone, or hydronephrosis. A 2.6 cm low-density lesion is seen involving the cortex of the upper pole right kidney. Hounsfield units are 11 on this unenhanced study. ADRENAL GLANDS: Within normal limits. VASCULAR: There is no aortic aneurysm. BOWEL/MESENTERY: The stomach, small bowel, and colon demonstrate no acute abnormality. There is no free intraperitone al air or fluid. ABDOMINAL WALL: Within normal limits. RETROPERITONEUM: There is no lymphadenopathy. BLADDER: No wall thickening or mass. REPRODUCTIVE: Within normal limits. INGUINAL: There is no lymphadenopathy or hernia. MUSCULOSKELETAL: Within normal limits for patient age. CONCLUSION: 1. No acute abnormality to explain the patient's pain. 2. Bilateral pulmonary nodules. Current guidelines suggest a repeat CT of the thorax in 12 months. 3. Hepatic steatosis. 4. A right upper pole renal lesion. This is incompletely evaluated on this study but the CT character istics on this unenhanced exam are consistent with a cyst. Mark Garcia Jr., MD on November 21, 2016 at 17:37 Board Certified Radiologist. This report was verified electronically.
[2016-11-21 17:50] LABS: ANION GAP 9 MEQ/L (5-15); AST (GOT) 91 U/L (15-37); BICARBONATE 24.9 MEQ/L (21.0-32.0); BLOOD UREA NITROGEN 29 MG/DL (7-18); CHLORIDE 97 MEQ/L (98-107); GLOMERULAR FILTRATION RATE 73 ML/MIN (>89); POTASSIUM 4.2 MEQ/L (3.5-5.1); SODIUM (NA) 131 MEQ/L (136-145)
[2016-11-21 17:53] LABS: ALKALINE PHOSPHATASE 133 U/L (45-117); ALT (GPT) 202 U/L (12-78); TOTAL BILIRUBIN ADULT 0.5 MG/DL (0.2-1.0)
[2016-11-21] MEDS ORDERED: HYDR-3533 PO (18:33)
--- NOTE | 2016-11-21 18:35 | PD ---
HPI Chief Complaint: Flank/Kidney Pain Time Seen by Provider: 18:11 Travel History International Travel<30 days: No Contact w/Intl Traveler<30days: No Traveled to known affect area: No History of Present Illness HPI 51 yo M c/o R flank pain starting last night. The pain can be severe at times. It's worse with percussion. Pt reports history of kidney stones. Nausea reported. No vomiting. Hesitancy without dysuria. No hematuria. No saddle anesthesia. No overflow urinary incontinence. No fecal incontinence. No fever. Denies hx IVDA. Pt has been cutting down alcohol consumption lately, down from nearly a liter lately to a few drinks nightly or every other night. PFSH Past Medical History Autoimmune Disease: No Anxiety: Yes Depression: Yes Cancer: No Cardiovascular Problems: Yes (HTN) Endocrine: No Gout: Yes Immune Disorder: No Psychiatric: No Past Surgical History Oral Surgery: Yes (TONSILS (8TH GRADE)) Social History Alcohol Use: Yes (5-6 beers a day) Tobacco Use: Yes (0.5 PPD) Substance Use: No Allergies-Medications (Allergen,Severity, Reaction): Coded Allergies: penicillin G (Unverified Allergy, Intermediate, Hives, 11/21/16) describes hives and rash, but no airway involvement morphine (Verified Adverse Reaction, Severe, seizure, 11/21/16) Reported Meds & Prescriptions Reported Meds & Active Scripts Active Lortab (Hydrocodone-Acetaminophen) 5-325 Mg Tab 1-2 Tab PO Q6H PRN Pravastatin 20 Mg Tab 20 Mg PO DAILY Metoprolol Tartrate 25 Mg Tab 25 Mg PO BID Medrol Dosepak (Methylprednisolone) 4 Mg Dspk 4 Mg PO DIRECTED Per Pharmacist direction Aspirin EC (Aspirin) 81 Mg Tabdr 81 Mg PO DAILY Review of Systems Except as stated in HPI: all other systems reviewed are Neg General / Constitutional: No: Fever Gastrointestinal: Positive: Nausea, No: Vomiting Genitourinary: Positive: Frequency, Dysuria, Other (hesitancy), No: Urgency Physical Exam Narrative GENERAL: 51 yo M, speaking full sentences SKIN: Warm and dry. HEAD: Atraumatic. Normocephalic. EYES: Pupils equal and round. No scleral icterus. No injection or drainage. ENT: No nasal bleeding or discharge. Mucous membranes pink and moist. NECK: Trachea midline. No JVD. CARDIOVASCULAR: Regular rate and rhythm. RESPIRATORY: No accessory muscle use. Clear to auscultation. Breath sounds equal bilaterally. GASTROINTESTINAL: Soft. Negative Patterson's sign. No TTP McBurney's point. Minimal R flank pain. MUSCULOSKELETAL: Extremities without clubbing, cyanosis, or edema. No obvious deformities. No focal spinal TTP. NEUROLOGICAL: Awake and alert. No obvious cranial nerve deficits. Motor grossly within normal limits. Five out of 5 muscle strength in the arms and legs. Normal speech. Normal gait. No ankle clonus. PSYCHIATRIC: Appropriate mood and affect; insight and judgment normal. Data Data Last Documented VS VS reviewed and within acceptable limits Orders Orders Complete Blood Count With Diff (11/21/16 16:43) Comprehensive Metabolic Panel (11/21/16 16:43) Urinalysis - C+S If Indicated (11/21/16 16:43) Ct Abd/Pel W/O Iv Contrast (11/21/16 16:43) Iv Access Insert/Monitor (11/21/16 16:43) Ecg Monitoring (11/21/16 16:43) Oximetry (11/21/16 16:43) Sodium Chloride 0.9% Flush (Ns Flush) (11/21/16 16:45) Ibuprofen (Motrin) (11/21/16 16:45) Oxycodone-Acetamin 10-325 Mg (Percocet 1 (11/21/16 18:45) Ondansetron Odt (Zofran Odt) (11/21/16 18:45) Labs Laboratory Tests Test 11/21/16 16:50 11/21/16 16:55 White Blood Count 18.1 TH/MM3 Red Blood Count 4.00 MIL/MM3 Hemoglobin 14.0 GM/DL Hematocrit 41.2 % Mean Corpuscular Volume 103.0 FL Mean Corpuscular Hemoglobin 34.9 PG Mean Corpuscular Hemoglobin Concent 33.9 % Red Cell Distribution Width 14.0 % Platelet Count 256 TH/MM3 Mean Platelet Volume 10.3 FL Neutrophils (%) (Auto) 76.3 % Lymphocytes (%) (Auto) 14.3 % Monocytes (%) (Auto) 7.0 % Eosinophils (%) (Auto) 2.0 % Basophils (%) (Auto) 0.4 % Neutrophils # (Auto) 13.8 TH/MM3 Lymphocytes # (Auto) 2.6 TH/MM3 Monocytes # (Auto) 1.3 TH/MM3 Eosinophils # (Auto) 0.4 TH/MM3 Basophils # (Auto) 0.1 TH/MM3 CBC Comment DIFF FINAL Differential Comment Blood Urea Nitrogen 29 MG/DL Creatinine 1.07 MG/DL Random Glucose 108 MG/DL Total Protein 8.3 GM/DL Albumin 3.9 GM/DL Calcium Level 8.8 MG/DL Alkaline Phosphatase 133 U/L Aspartate Amino Transf (AST/SGOT) 91 U/L Alanine Aminotransferase (ALT/SGPT) 202 U/L Total Bilirubin 0.5 MG/DL Sodium Level 131 MEQ/L Potassium Level 4.2 MEQ/L Chloride Level 97 MEQ/L Carbon Dioxide Level 24.9 MEQ/L Anion Gap 9 MEQ/L Estimat Glomerular Filtration Rate 73 ML/MIN Urine Color YELLOW Urine Turbidity CLEAR Urine pH 6.0 Urine Specific [place] 1.025 Urine Protein TRACE mg/dL Urine Glucose (UA) NEG mg/dL Urine Ketones NEG mg/dL Urine Occult Blood NEG Urine Nitrite NEG Urine Bilirubin NEG Urine Urobilinogen LESS THAN 2.0 MG/DL Urine Leukocyte Esterase NEG Urine RBC LESS THAN 1 /hpf Microscopic Urinalysis Comment CULT NOT INDICATED MDM Medical Decision Making Medical Screen Exam Complete: Yes Emergency Medical Condition: Yes Medical Record Reviewed: Yes Differential Diagnosis myofascial strain, epidural abscess, renal stone, UTI, aneurysm Narrative Course pt found asleep at time of reassessment. work up and follow up plans discussed with patient. diet and lifestyle modification encouraged. pt agreeable with plan. pt verbalized intent to obtain repeat CT thorax in 12 months. Last Impressions Abdomen/Pelvis CT 11/21/16 [id number] Signed Impressions: Service Date/Time: Monday, November 21, 2016 17:08 - CONCLUSION: 1. No acute abnormality to explain the patient's pain. 2. Bilateral pulmonary nodules. Current guidelines suggest a repeat CT of the thorax in 12 months. 3. Hepatic steatosis. 4. A right upper pole renal lesion. This is incompletely evaluated on this study but the CT characteristics on this unenhanced exam are consistent with a cyst. Mark Garcia Jr., MD CBC & BMP Diagram 11/21/16 16:50 Total Protein 8.3 H, Albumin 3.9, Calcium Level 8.8, Alkaline Phosphatase 133 H , Aspartate Amino Transf (AST/SGOT) 91 H, Alanine Aminotransferase (ALT/SGPT) 202 H, Total Bilirubin 0.5 UA: No UTI or hematuria Diagnosis Primary Impression: Back pain Qualified Codes: M54.5 - Low back pain Additional Impressions: Elevated LFTs Pulmonary nodule less than 6 cm determined by computed tomography of lung Dehydration Referrals: [facility] call for appointment Additional Instructions: You have a choice when it comes to health care, and we are glad that you chose [facility]. Hopefully, we have met your expectations on today's visit. You are welcome to return to [facility] at any time, as we are committed to meeting the health care needs of our community. FOLLOW UP WITH [facility]. REPEAT CT CHEST IN 12 MONTHS FOR ASSESSMENT OF PULMONARY NODULES. STICK WITH YOU LIFESTYLE RESOLUTION GOALS. REPLACE BAD HABITS WITH GOOD ONES. YOU'LL GET THERE! TODAY YOUR BLOOD WORK SHOWS DEHYDRATION. TRY TO DRINK 3 LITERS OF WATER DAILY AT LEAST. FOR THE NEXT FIVE DAYS OR SO PLEASE TRY TO DRINK 4-5 LITERS WATER DAILY AND REST AND RELAX TO HEAL YOUR BACK. Med/Other Pt SpecificInfo: Prescription(s) given Scripts Hydrocodone-Acetaminophen (Lortab) 5-325 Mg Tab 1-2 TAB PO Q6H Y for PAIN SCALE 6 TO 10, #20 TAB 0 Refills Prov: Josué Biswas MD 11/21/16 Disposition: 01 DISCHARGE HOME Condition: Stable Josué Biswas MD Nov 21, 2016 18:35
[2016-11-21] MEDS ORDERED: ONDANSETRON ODT 4 MG TAB SL ONE (18:45)
[2016-11-21] MEDS ORDERED: oxyCODONE/ACETAMINOPHEN 10 MG/325 MG TAB PO ONE (18:45)
== END 2016-11-21 19:16 | disposition home or self-care (01) ==
LOC: NEPD 15:17
DX: M54.5 Low back pain (principal); R91.1 Solitary pulmonary nodule; E86.0 Dehydration; F17.200 Nicotine dependence, unspecified, uncomplicated
CPT/HCPCS: 74176; 80053; 81001; 85025; 99285